=== PATIENT | male | born 1955 | race African-American/Black ===

== ENCOUNTER 2021-09-03 05:09 | Emergency (ER) | payer OTHER ==
[2021-09-03 06:13] LABS: ALT (SGPT) Less than 6 U/L (8-55); AST (SGOT) 16 U/L (5-34); Alkaline Phosphatase 65 U/L (40-110); Anion Gap 16 mmol/L (10-20); BUN (Urea Nitrogen) 24 mg/dL (8.4-25.7); Bilirubin, Total 0.8 mg/dL (0.2-1.2); Calc. Creatinine Clearance 0 mL/min (70-130); Calcium 9.2 mg/dL (7.8-10.44); Carbon Dioxide 22 mmol/L (23-31); Chloride 109 mmol/L (98-107); Globulin 2.8 g/dL (2.4-3.5); Glucose 94 mg/dL (80-115); Potassium 3.9 mmol/L (3.5-5.1); Protein, Total 6.8 g/dL (5.8-8.1); Sodium 143 mmol/L (136-145)
[2021-09-03 06:16] LABS: #Eosinphils 0.3 10x3/uL (0.0-0.5); #Monocytes 0.7 10x3/uL (0.0-1.1); #Neutrophils 4.1 10x3/uL (1.5-8.4); %Basophils 0.6 % (0.0-2.0); %Eosinophils 3.8 % (0.0-6.0); %Monocytes 9.8 % (0.0-10.0); %Neutrophils 57.7 % (40.0-75.0); Mean Corpuscular Hemoglobin 22.6 pg (27.0-33.0); Mean Corpuscular Volume 70.6 fl (81.2-95.1); Platelet Count 226 10x3/uL (150-450); RBC Distribution Width 16.2 % (11.5-14.5); Red Blood Cell (RBC) Count 3.98 10x6/uL (4.32-5.72)
[2021-09-03 08:20] LABS: SARS-CoV-2 NAA Rapid Test Not Detected (NotDetected)
== END 2021-09-03 10:44 ==
LOC: CSHERS 05:09
DX: R07.89 Other chest pain (principal); Z20.822 Contact with and (suspected) exposure to COVID-19; M10.9 Gout, unspecified; I10 Essential (primary) hypertension; D64.9 Anemia, unspecified; Z79.899 Other long term (current) drug therapy
CPT/HCPCS: 71045; 80053; 83880; 84484; 85025; 93005; U0002

== ENCOUNTER 2021-09-25 06:32 | Emergency (ER) | payer OTHER ==
[2021-09-25 07:01] LABS: #Eosinphils 0.3 10x3/uL (0.0-0.5); #Monocytes 0.6 10x3/uL (0.0-1.1); #Neutrophils 2.3 10x3/uL (1.5-8.4); %Basophils 0.8 % (0.0-2.0); %Eosinophils 5.2 % (0.0-6.0); %Lymphocytes 35.1 % (18.0-47.0); %Neutrophils 46.7 % (40.0-75.0); Hemoglobin 9.3 g/dL (13.5-17.5); Mean Corpuscular HGB CONC 31.4 g/dL (32.0-36.0); Mean Corpuscular Hemoglobin 22.2 pg (27.0-33.0); Mean Corpuscular Volume 70.8 fl (81.2-95.1); Platelet Count 204 10x3/uL (150-450); RBC Distribution Width 17.4 % (11.5-14.5); Red Blood Cell (RBC) Count 4.18 10x6/uL (4.32-5.72); White Blood Cell (WBC) Count 4.9 10x3/uL (3.5-10.5)
[2021-09-25 07:07] LABS: ALT (SGPT) 7 U/L (8-55); AST (SGOT) 15 U/L (5-34); Albumin 3.7 g/dL (3.4-4.8); Alkaline Phosphatase 83 U/L (40-110); Anion Gap 14 mmol/L (10-20); BUN (Urea Nitrogen) 16 mg/dL (8.4-25.7); Bilirubin, Total 0.6 mg/dL (0.2-1.2); Calc. Creatinine Clearance 0 mL/min (70-130); Calcium 8.8 mg/dL (7.8-10.44); Carbon Dioxide 27 mmol/L (23-31); Chloride 100 mmol/L (98-107); Globulin 2.7 g/dL (2.4-3.5); Glucose 91 mg/dL (80-115); Potassium 3.7 mmol/L (3.5-5.1); Protein, Total 6.4 g/dL (5.8-8.1); Sodium 137 mmol/L (136-145)
[2021-09-25 08:14] LABS: SARS-CoV-2 NAA Rapid Test Not Detected (NotDetected)
[2021-09-25] MEDS ORDERED: Piperacillin/Tazobactam 4.5 GM VIAL ONE (11:13)
== END 2021-09-25 19:49 | disposition short-term general hospital (02) ==
LOC: CSHERS 06:32
DX: R07.9 Chest pain, unspecified (principal); H60.23 Malignant otitis externa, bilateral; Z20.822 Contact with and (suspected) exposure to COVID-19; I10 Essential (primary) hypertension
CPT/HCPCS: 71046; 80053; 84484; 85025; 93005; 96374; J2543; U0002

== ENCOUNTER 2022-01-25 10:24 | Emergency (ER) | payer OTHER ==
[2022-01-25] MEDS ORDERED: Iopamidol 300 61% 100 ML VIAL FS ONE (10:49)
[2022-01-25] MEDS ORDERED: Magnevist 469MG/ML 20 ML VIAL ONE (11:02)
[2022-01-25] MEDS ORDERED: Lidocaine 1% (PF) 30 ML VIAL ONE (11:22)
[2022-01-25 11:36] LABS: Hemoglobin 8.4 g/dL (13.5-17.5); Mean Corpuscular HGB CONC 34.7 g/dL (32.0-36.0); Mean Corpuscular Hemoglobin 23.1 pg (27.0-33.0); Mean Corpuscular Volume 66.7 fl (81.2-95.1); Platelet Count 362 10x3/uL (150-450); Red Blood Cell (RBC) Count 3.63 10x6/uL (4.32-5.72); White Blood Cell (WBC) Count 19.3 10x3/uL (3.5-10.5)
[2022-01-25 11:59] LABS: MDiff Complete? YES; Manual Diff?? YES
[2022-01-25 12:00] LABS: ALT (SGPT) 21 U/L (8-55); AST (SGOT) 31 U/L (5-34); Alkaline Phosphatase 195 U/L (40-110); Anion Gap 14 mmol/L (10-20); BUN (Urea Nitrogen) 36 mg/dL (8.4-25.7); Bilirubin, Total 2.9 mg/dL (0.2-1.2); Calc. Creatinine Clearance 0 mL/min (70-130); Calcium 9.3 mg/dL (7.8-10.44); Carbon Dioxide 20 mmol/L (23-31); Chloride 107 mmol/L (98-107); Estimated GFR 34; Globulin 3.7 g/dL (2.4-3.5); Glucose 99 mg/dL (80-115); Potassium 3.3 mmol/L (3.5-5.1); Protein, Total 6.7 g/dL (5.8-8.1); Sodium 138 mmol/L (136-145)
[2022-01-25 12:06] LABS: Band 22 % (5-11); Lymphocytes 5 % (21-51); Metamyelocyte 2 % (0-0); Monocytes 3 % (0-10); Neutrophil 64 % (42-75); Reactive Lymphocytes 4 % (0-10)
[2022-01-25 12:07] LABS: Anisocytosis SLIGHT = 6-15 cells (100X) (0-5/hpf); Hypochromia MODERATE=16-30 cells (100X) (0-5/hpf); Macrocytosis SLIGHT = 6-15 cells (100X) (0-5/hpf); Microcytosis SLIGHT = 6-15 cells (100X) (0-5/hpf); Platelet Morphology Comment Appears Adequate
[2022-01-25 12:08] LABS: Elliptocytes SLIGHT = 2-5 cells (100X) (0-1/hpf); Schistocytes SLIGHT = 2-5 cells (100X) (0-1/hpf); Target Cells SLIGHT = 2-5 cells (100X) (0-1/hpf)
[2022-01-25 12:09] LABS: Crenated RBC SLIGHT = 1-5 cells (100X) (None Seen); Stomatocytes SLIGHT = 2-5 cells (100X) (0-1/hpf); Tear Drops SLIGHT = 2-5 cells (100X) (0-1/hpf)
[2022-01-25 12:49] LABS: SARS-CoV-2 NAA Rapid Test Not Detected (NotDetected)
[2022-01-25] MEDS ORDERED: Cefepime 2 GM VIAL ONE (13:46)
[2022-01-25] MEDS ORDERED: Morphine 4 MG/ML VIAL ONE (17:04)
== END 2022-01-25 20:11 | disposition short-term general hospital (02) ==
LOC: CSHERS 10:24
DX: M46.26 Osteomyelitis of vertebra, lumbar region (principal); G83.4 Cauda equina syndrome; N17.9 Acute kidney failure, unspecified; M10.9 Gout, unspecified; I10 Essential (primary) hypertension; Z20.822 Contact with and (suspected) exposure to COVID-19
CPT/HCPCS: 36415; 71045; 72158; 74177; 80053; 83605; 84484; 85025; 87040; 87077; 87149; 87186; 93005; 94760; 96374; 96375; A9579; J0692; J2001; J2270; J3370; Q9967; U0002